=== PATIENT | female | born 1985 | race Caucasian/White ===

== ENCOUNTER → 2017-05-20 | Day surgery (SDC) | payer BC, OTHER ==
[~2017-05-20] MED LIST: LORTAB 7.5-5001 TAB PO; NAPROXEN250 MG PO; NO MEDICATIONS; OMEPRAZOLE40 M1 PO; PHENERGAN PO; PHENERGAN25 MG PO; ZYRTEC-D T1 TAB.SR1 PO
--- NOTE | ~2017-05-20 | OR ---
Unit #: [id number] #: [id number] Patient: ROM ESPANA [id number] [address] [address] [id number] O MR#: [id number] NAME: ROM ESPANA ROOM: Date of Procedure: 05/20/2017 Admission Date: 05/20/2017 Surgeon: Ronald Espinoza III, M.D. : 1985 Attending Physician: Ronald Espinoza III, M.D. Referring Physician: Ronald Espinoza III, M.D. Primary Care Physician: Bryn Villarreal M.D. OPERATIVE REPORT PREOPERATIVE DIAGNOSES Gastroesophageal reflux disease and hiatal hernia. POSTOPERATIVE DIAGNOSIS Gastroesophageal reflux disease and hiatal hernia. PROCEDURE PERFORMED Laparoscopic Amie fundoplication. GENERAL TELLER Dr. Eddie Allison. SPECIMENS None. COMPLICATIONS None apparent. ESTIMATED BLOOD LOSS Minimal. ANESTHESIA General endotracheal tube anesthesia. INDICATIONS FOR PROCEDURE This is a 31-year-old lady, who is having fairly severe reflux that is refractory to medical therapy. She is here today for laparoscopic Amie. DESCRIPTION OF PROCEDURE After consent was obtained, the patient was brought to the operating room and placed in the supine position. General anesthetic was administered. Her abdomen was prepped and draped in standard surgical fashion. I made a 1 cm incision just above and left of the umbilicus. I used a Visiport to enter the peritoneal cavity without any difficulty. CO2 pneumoperitoneum was then established. Next, a 5-mm Nathalie liver retractor was placed in the subxiphoid region. A 10-mm port was placed in the left upper quadrant and a 5-mm port was placed in the left lateral subcostal region and the right upper quadrant. I began by performing diagnostic laparoscopy. She had a small appearing hiatal defect. As I opened up the gastrohepatic ligament and took down the phrenoesophageal ligament and dissected out the angle of His, the hernia ended up being closer to medium in size. She had a lot of inflammation around her esophagus consistent Unit #: [id number] #: [id number] Patient: ROM ESPANA with reflux. I was able to fully mobilize the esophagus to 360 degrees. There was no evidence of any shortening of the esophagus. I completed the posterior dissection and dissected out the crura posteriorly as well. I then used a Harmonic Scalpel to take down the short gastrics along the upper third of the fundus. Once that portion of the stomach was mobilized, I then proceeded with reapproximation of the crura. I used 2 interrupted 0 Ethibond svripf-qj-oxtzo sutures to reapproximate the crura posteriorly. I then performed a 360-degree wrap that was created in a loose floppy fashion. I used 3 interrupted 0 Ethibond wjlygz-jj-ggsyx sutures approximately 1 cm apart and the superior most stitch incorporated a bite of the anterior esophagus. I had excellent hemostasis and all needle, sponge, and instrument counts were correct x2. I removed all the trocars. I released the pneumoperitoneum. The incisions were all injected with 0.25% plain Marcaine. I reapproximated the skin edges with interrupted 4-0 Vicryl subcuticular suture. Steri-Strips were then applied. The patient tolerated the procedure without any problems and returned to the recovery room in stable condition. Dictated by... Ronald Espinoza III, M.D. VCL/matti TD: 05/21/2017 06:34 JOB #: [id number] OPERATIVE REPORT Page 1 of 1 X Ronald Espinoza III, MD PROCEDURE OPERATIVE NOTE
== END | disposition home or self-care (01) ==
LOC: CSUR 05:39
DX: K21.9 Gastro-esophageal reflux disease without esophagitis (principal); K44.9 Diaphragmatic hernia without obstruction or gangrene
CPT/HCPCS: 84703; J0330; J0690; J1100; J1644; J1885; J2250; J2405; J2710; J3010

== ENCOUNTER → 2017-06-27 | Outpatient (CLI) | payer BC, OTHER ==
--- NOTE | ~2017-06-27 | CT2 ---
[facility] A Service of [facility] RADIOLOGY TEXT RESULTS PATIENT: ROM ESPANA LOCATION: [facility] : [birth year] UNIT #: [id number] AGE: [address]: Farhad Webb MD SEX: F ORDER DR: [id number] [facility] [address] [facility] [place], [place] [address] [id number] O MR#: [id number] Acc #: [id number] NAME: ROM ESPANA : 1985 SEX: F STUDY DATE/TIME: 06/27/2017 15:47 UNIT: [facility] ROOM: STUDY DESCRIPTION: CT Abd and Pelv W Cont Attending Physician: Farhad Webb M.D. Referring Physician: Farhad Webb M.D. Ordering Physician: Farhad Webb M.D. Primary Care Physician: Richelle Edwards A.P.R.N. MEDICAL IMAGING REPORT This report is preliminary unless electronic signature is present EXAM CT of the abdomen and pelvis without contrast. INDICATION Upper right pain radiating to the mid abdomen for 3 weeks. Patient had acid reflux surgery May 20, [address] images were obtained from the dome of the diaphragm through the symphysis pubis following the administration of intravenous contrast material. The CT exam was performed with one or more of the following radiation dose reduction techniques: automatic exposure control, adjustment of mA and/or kV according to patient size, and iterative reconstruction. FINDINGS Images through the lung bases demonstrate a noncalcified pulmonary nodule at the right lung base measuring up to 4 mm in size. It is of doubtful clinical significant in a 32-year-old [id number] in the absence of any prior history of malignancy or smoking history. Patient is noted to have some postsurgical changes seen at the GE junction. This process does not however, resulting in obstruction. No fluid collections are identified. No free air is seen. Liver appears unremarkable. Gallbladder is surgically absent. Spleen is within normal limits. Pancreas is mildly atrophic. Adrenal glands appear normal as are the kidneys. No free fluid or adenopathy is seen within the abdomen and there is no evidence of mechanical bowel obstruction. There is a fat-containing umbilical hernia. Patient has a peripheral enhancing structure within the right ovary likely reflecting hemorrhagic cyst. Uterus appears unremarkable as does the urinary bladder. Review of bony windows does not demonstrate any aggressive osseous STS. [facility] A Service of [facility] RADIOLOGY TEXT RESULTS PATIENT: ROM ESPANA LOCATION: [facility] : [birth year] UNIT #: [id number] AGE: [address]: Farhad Webb MD SEX: F ORDER DR: abnormalities. IMPRESSION 1. Postsurgical changes involving the GE junction without evidence of obstruction. No pneumatosis or free air is seen and no adjacent intraluminal fluid collections are identified. 2. Changes of prior cholecystectomy. 3. Also noted but not mentioned in the report the patient's appendix is visualized and is within normal limits. Please see the body of the report for any other additional incidental findings. Dictated by... Elyssa Reese M.D. THIS IS AN ELECTRONICALLY VERIFIED REPORT Elyssa Reese M.D. at 06/28/2017 4:58 PM AFF/denise TD: 06/28/2017 08:02 JOB #: [id number] MEDICAL IMAGING REPORT Page 1 of 1 COPY
== END | disposition home or self-care (01) ==
LOC: CCAT 14:41
DX: R10.11 Right upper quadrant pain (principal); Z98.890 Other specified postprocedural states; Z90.49 Acquired absence of other specified parts of digestive tract
CPT/HCPCS: 74177; Q9967

== ENCOUNTER 2017-07-18 19:33 | Emergency (ER) | payer BC, OTHER ==
[~2017-07-18] VITALS: Ht 170.2 cm; Wt 88.5 kg
== END 2017-07-18 21:25 | disposition home or self-care (01) ==
LOC: SED 19:33
DX: J02.0 Streptococcal pharyngitis (principal); Z88.1 Allergy status to other antibiotic agents; Z88.8 Allergy status to other drugs, medicaments and biological substances
CPT/HCPCS: 87880; 99283